=== PATIENT | male | born 1960 | race African-American/Black ===

== ENCOUNTER 2019-01-16 11:30 | Inpatient (IN) | payer OTHER ==
[2019-01-16 17:17] VITALS: BMI 22.1
--- NOTE | 2019-01-16 18:29 | HP ---
CIWA Score Nausea/Vomitin-No Nausea/No Vomiting Muscle Tremors: None Anxiety: 1-Mildly Anxious Agitation: 1-Slight > Activity Paroxysmal Sweats: 1-Minimal Palms Moist Orientation: 1-Uncertain about Date Tacttile Disturbances: 0-None Auditory Disturbances: 0-None Visual Disturbances: 0-None Headache: 0-None Present CIWA-Ar Total Score: 4 - Admission Criteria OASAS Guidelines: Admission for Medically Managed Detox: Requires at least one of the followin. CIWA greater than 12 2. Seizures within the past 24 hours 3. Delirium tremens within the past 24 hours 4. Hallucinations within the past 24 hours 5. Acute intervention needed for co occurring medical disorder 6. Acute intervention needed for co occurring psychiatric disorder 7. Severe withdrawal that cannot be handled at a lower level of care (continued vomiting, continued diarrhea, abnormal vital signs) requiring intravenous medication and/or fluids 8. Admission ROS S - HPI Allergies/Adverse Reactions: Allergies Allergy/AdvReac Type Severity Reaction Status Date / Time No Known Allergies Allergy Verified 01/16/19 17:03 History of Present Illness: pt her requesting detox from etoh use , reports 1 x 6-pk beer and several shots of liquor /day , reports sweating if not drinking , latest use this morning , current symptoms as above , starts drinking in the mornings , + trmeors if not drinking , denies seizures , + blackout x once , + falls while intoxicated denies injuries . pmhx : hiv 25 years ago dx , ID clinic @ [facility] ctr pshx : left arm 2 mo ago CA excision @ [facility] , CT scan 1 week ago , no cxt/rxt , left leg skin graft donor site psych : denies tobacco : 1/2 ppd . Exam Limitations: No Limitations - Ebola screening Have you traveled outside of the country in the last 21 days: No Have you had contact with anyone from an Ebola affected area: No - Review of Systems Constitutional: No Symptoms Reported EENT: reports: Other (glasses) Respiratory: reports: No Symptoms reported Cardiac: reports: No Symptoms Reported GI: reports: No Symptoms Reported : reports: No Symptoms Reported Musculoskeletal: reports: Muscle Pain (left arm) Integumentary: reports: See HPI Neuro: reports: See HPI Endocrine: reports: No Symptoms Reported Psychiatric: reports: Orientated x3 Patient History - Patient Medical History Hx Anemia: No Hx Asthma: No Hx Chronic Obstructive Pulmonary Disease (COPD): No Hx Cancer: No Hx Cardiac Disorders: No Hx Congestive Heart Failure: No Hx Hypertension: Yes Hx Hypercholesterolemia: No Hx Pacemaker: No HX Cerebrovascular Accident: No Hx Seizures: No Hx Dementia: No Hx Diabetes: No Hx Gastrointestinal Disorders: No Hx Liver Disease: No Hx Genitourinary Disorders: No Hx Sexually Transmitted Disorders: No Hx Renal Disease (ESRD): No Hx Thyroid Disease: No Hx Human Immunodeficiency Virus (HIV): Yes Hx Hepatitis C: Yes Hx Depression: Yes Hx Suicide Attempt: No Hx Bipolar Disorder: No Hx Schizophrenia: No - Patient Surgical History Past Surgical History: No Hx Neurologic Surgery: No Hx Cataract Extraction: No Hx Cardiac Surgery: No Hx Lung Surgery: No Hx Breast Surgery: No Hx Breast Biopsy: No Hx Abdominal Surgery: No Hx Appendectomy: No Hx Cholecystectomy: No Hx Genitourinary Surgery: No Hx Orthopedic Surgery: No - PPD History Date: 04/11/16 - Smoking Cessation Smoking history: Current every day smoker Have you smoked in the past 12 months: Yes Aproximately how many cigarettes per day: 20 Cigars Per Day: 0 Hx Chewing Tobacco Use: No Initiated information on smoking cessation: No - Substances abused Alcohol Substance route: Oral Frequency: Daily Amount used: 6 pints Age of first use: 18 Date of last use: 01/16/19 Family Disease History - Family Disease History Family History: Denies Admission Physical Exam BHS - Vital Signs Vital Signs: Vital Signs - 24 hr 01/16/19 17:02 Temperature 97.9 F Pulse Rate 73 Respiratory 20 Rate Blood Pressure 162/86 - Physical General Appearance: Yes: Mild Distress, Anxious HEENTM: Yes: EOMI, Normocephalic, Muffled/Hoarse Voice Respiratory: Yes: Normal Breath Sounds, No Respiratory Distress, No Accessory Muscle Use Neck: Yes: Trachea in good position Cardiology: Yes: Regular Rhythm, Regular Rate, S1, S2 Abdominal: Yes: Non Tender, Soft Musculoskeletal: Yes: Joint Stiffness, Other (left arm superior p osterior area of large surgical excision deformity w/ skin graft, c/d/i) Extremities: Yes: Normal Range of Motion, Non-Tender Neurological: Yes: Alert, Motor Strength 5/5 Integumentary: Yes: Warm - Diagnostic (1) Alcohol dependence with withdrawal, uncomplicated Current Visit: Yes Status: Acute (2) Nicotine dependence Current Visit: Yes Status: Chronic Qualifiers: Nicotine product type: cigarettes Breathalyzer - Breathalyzer Breathalyzer: 0 Urine Drug Screen - Test Device Lot number: [id number] Expiration date: 09/25/20 - Control Is test valid?: Yes - Results Drug screen NEGATIVE: Yes Inpatient Rehab Admission - Rehab Decision to Admit Inpatient rehab admission?: Yes - Initial Determination Are CD services needed?: Yes Free of communicable disease: Yes Not in need of hospitalization: Yes - Rehab Admission Criteria Previous failed treatment: Yes Poor recovery environment: Yes Comorbidities: No Lacks judgement: Yes Patient is meeting Inpatient Rehab admission criteria:: Yes
[2019-01-16] MEDS ORDERED: guaiFENesin 200 MG/10 ML 10 ML UNIT-DOSE CUPS PO PRN (18:50)
[2019-01-16] MEDS ORDERED: MAGNESIUM CITRATE 300 ML BOTTLE PO PRN (18:50)
[2019-01-16] MEDS ORDERED: MENTHOL/PHENOL 1 EACH UD MM PRN (18:50)
[2019-01-16] MEDS ORDERED: MAG HYDROX/AL HYDROX/SIMETH 30 ML UNIT-DOSE CUP PO PRN (18:50)
[2019-01-16] MEDS ORDERED: IBUPROFEN 400 MG TABLET (FP) PO PRN (18:50)
[2019-01-16] MEDS ORDERED: ACETAMINOPHEN 325 MG TABLET (FP) PO PRN (18:50)
[2019-01-16] MEDS ORDERED: LOPERAMIDE HCL 2 MG CAPSULE PO PRN (18:50)
[2019-01-16] MEDS ORDERED: P-EPHED 60MG/TRIPROLIDI 2.5MG TABLET PO PRN (18:50)
[2019-01-16] MEDS ORDERED: MAGNESIUM HYDROX 2400MG/30ML ORAL SUSPENSION 30 ML CUP PO PRN (18:50)
[2019-01-16] MEDS ORDERED: TUBERCULIN PPD 5 TU/0.1ML VIAL ID ONE (20:42)
[2019-01-16 21:18] LABS: EPI CELLS 0.8 /HPF (0-5/HPF); HYALINE CASTS 1 /lpf (0-8); PH,URINE 6.5 (5.0-8.0); URINE APPEARANCE CLEAR; URINE BACTERIA 3.2 /hpf (NEGATIVE); URINE BILIRUBIN NEGATIVE (NEGATIVE); URINE COLOR YELLOW; URINE GLUCOSE (UA) NEGATIVE (NEGATIVE); URINE KETONE 1+ (NEGATIVE); URINE LEUK ESTERASE NEGATIVE (NEGATIVE); URINE NITRITE NEGATIVE (NEGATIVE); URINE PROTEIN 1+ (NEGATIVE); URINE RBC 0 /hpf (0-4); URINE UROBILINOGEN 0.2 mg/dL (0.2-1.0); URINE WBC 2 /hpf (0-5)
[2019-01-16] MEDS: THIAMINE HCL 100 MG TABLET (FP) PO SCH (22:10)
[2019-01-16] MEDS: MELATONIN 5 MG TABLETS PO PRN (22:10)
[2019-01-16] MEDS: ASPIRIN COATED 81 MG TABLET.EC PO SCH (22:21)
[2019-01-17] MEDS: HYDROCHLOROTHIAZIDE 12.5 MG CAPSULE (FP) PO SCH (09:33)
[2019-01-17] MEDS: PRENATAL VITAMINS W/ FOLIC ACID TABLET (FP) PO SCH (09:33)
[2019-01-17] MEDS: amLODIPine BESYLATE 5 MG TABLET (FP) PO SCH (09:33)
[2019-01-17] MEDS: ASPIRIN COATED 81 MG TABLET.EC PO SCH (09:33)
[2019-01-17 10:41] LABS: BLOOD UREA NITROGEN 14.4 mg/dL (7-18); CALCIUM 9.6 mg/dL (8.5-10.1); POTASSIUM 4.4 mmol/L (3.5-5.1)
[2019-01-17 10:42] LABS: HEMATOCRIT 40.8 % (35.4-49); HEMOGLOBIN 14.1 GM/dL (11.7-16.9); MCH 35.5 pg (25.7-33.7); MCHC 34.4 g/dl (32.0-35.9); MEAN CELL VOLUME 103.1 fl (80-96); MEAN PLT VOLUME 7.7 fl (7.5-11.1); PLATELET COUNT 332 K/MM3 (134-434); RBC 3.96 M/mm3 (4.00-5.60); RDW 14.3 % (11.9-15.9); WHITE BLOOD COUNT 2.7 K/mm3 (4.0-10.0)
[2019-01-17] MEDS: CALCIUM (OYSTER SHELL) 500 MG TABLET (FP) PO SCH (12:39)
[2019-01-17] MEDS: MELATONIN 5 MG TABLETS PO PRN (21:01)
[2019-01-17] MEDS: THIAMINE HCL 100 MG TABLET (FP) PO SCH (21:01)
[2019-01-18] MEDS: ASPIRIN COATED 81 MG TABLET.EC PO SCH (09:57)
[2019-01-18] MEDS: HYDROCHLOROTHIAZIDE 12.5 MG CAPSULE (FP) PO SCH (09:57)
[2019-01-18] MEDS: PRENATAL VITAMINS W/ FOLIC ACID TABLET (FP) PO SCH (09:57)
[2019-01-18] MEDS: amLODIPine BESYLATE 5 MG TABLET (FP) PO SCH (09:57)
[2019-01-18] MEDS: CALCIUM (OYSTER SHELL) 500 MG TABLET (FP) PO SCH (09:58)
[2019-01-18] MEDS: THIAMINE HCL 100 MG TABLET (FP) PO SCH (21:01)
[2019-01-18] MEDS: MELATONIN 5 MG TABLETS PO PRN (21:02)
[2019-01-19] MEDS: ASPIRIN COATED 81 MG TABLET.EC PO SCH (09:46)
[2019-01-19] MEDS: PRENATAL VITAMINS W/ FOLIC ACID TABLET (FP) PO SCH (09:46)
[2019-01-19] MEDS: CALCIUM (OYSTER SHELL) 500 MG TABLET (FP) PO SCH (09:46)
[2019-01-19] MEDS: amLODIPine BESYLATE 5 MG TABLET (FP) PO SCH (11:00)
[2019-01-19] MEDS: HYDROCHLOROTHIAZIDE 12.5 MG CAPSULE (FP) PO SCH (11:00)
[2019-01-19] MEDS: THIAMINE HCL 100 MG TABLET (FP) PO SCH (21:01)
[2019-01-19] MEDS: MELATONIN 5 MG TABLETS PO PRN (21:02)
[2019-01-20] MEDS: HYDROCHLOROTHIAZIDE 12.5 MG CAPSULE (FP) PO SCH (09:31)
[2019-01-20] MEDS: PRENATAL VITAMINS W/ FOLIC ACID TABLET (FP) PO SCH (09:31)
[2019-01-20] MEDS: amLODIPine BESYLATE 5 MG TABLET (FP) PO SCH (09:31)
[2019-01-20] MEDS: ASPIRIN COATED 81 MG TABLET.EC PO SCH (09:31)
[2019-01-20] MEDS: CALCIUM (OYSTER SHELL) 500 MG TABLET (FP) PO SCH (10:07)
[2019-01-20] MEDS: MELATONIN 5 MG TABLETS PO PRN (21:03)
[2019-01-20] MEDS: THIAMINE HCL 100 MG TABLET (FP) PO SCH (21:03)
[2019-01-21] MEDS: amLODIPine BESYLATE 5 MG TABLET (FP) PO SCH (09:24)
[2019-01-21] MEDS: PRENATAL VITAMINS W/ FOLIC ACID TABLET (FP) PO SCH (09:24)
[2019-01-21] MEDS: HYDROCHLOROTHIAZIDE 12.5 MG CAPSULE (FP) PO SCH (09:24)
[2019-01-21] MEDS: ASPIRIN COATED 81 MG TABLET.EC PO SCH (09:24)
[2019-01-21] MEDS: CALCIUM (OYSTER SHELL) 500 MG TABLET (FP) PO SCH (09:25)
[2019-01-21] MEDS: MELATONIN 5 MG TABLETS PO PRN (20:59)
[2019-01-21] MEDS: THIAMINE HCL 100 MG TABLET (FP) PO SCH (20:59)
[2019-01-22] MEDS: PRENATAL VITAMINS W/ FOLIC ACID TABLET (FP) PO SCH (09:32)
[2019-01-22] MEDS: amLODIPine BESYLATE 5 MG TABLET (FP) PO SCH (09:32)
[2019-01-22] MEDS: ASPIRIN COATED 81 MG TABLET.EC PO SCH (09:32)
[2019-01-22] MEDS: CALCIUM (OYSTER SHELL) 500 MG TABLET (FP) PO SCH (09:32)
[2019-01-22] MEDS: HYDROCHLOROTHIAZIDE 12.5 MG CAPSULE (FP) PO SCH (09:32)
[2019-01-22] MEDS: MELATONIN 5 MG TABLETS PO PRN (21:02)
[2019-01-22] MEDS: THIAMINE HCL 100 MG TABLET (FP) PO SCH (21:02)
[2019-01-23 06:30] VITALS: BP 111/75; PULSE 78; TEMP 98.1
[2019-01-23] MEDS: ASPIRIN COATED 81 MG TABLET.EC PO SCH (09:37)
[2019-01-23] MEDS: amLODIPine BESYLATE 5 MG TABLET (FP) PO SCH (09:37)
[2019-01-23] MEDS: HYDROCHLOROTHIAZIDE 12.5 MG CAPSULE (FP) PO SCH (09:37)
[2019-01-23] MEDS: CALCIUM (OYSTER SHELL) 500 MG TABLET (FP) PO SCH (09:37)
[2019-01-23] MEDS: PRENATAL VITAMINS W/ FOLIC ACID TABLET (FP) PO SCH (09:37)
--- NOTE | 2019-01-23 09:58 | PN ---
[facility] Progress Note (SOAP) Subjective: PT REQUESTING EARLY DISCHARGE PER [employer], ANDREW CAT. PT MET WITH HIS COUNSELOR, FADUMO BECKER AND HAS BEEN REFERRED TO [facility], [place], [place] FOR CD AFTERCARE. PT REPORTS HE HAS PRIMARY CARE AT [facility]. PT REPORTS HE HAS OWN MEDS AND WILL FOLLOW UP WITH MEDICAL CARE WITH HIS PCP. PT IS ALERT O X 3. DENIES S/H/I. Objective: 01/23/19 09:55 Vital Signs 01/23/19 01/23/19 03:30 06:28 Temperature 98.1 F Pulse Rate 78 Respiratory 18 18 Rate Blood Pressure 111/75 Laboratory Tests 01/16/19 01/17/19 01/17/19 17:14 08:00 08:00 WBC 2.7 L RBC 3.96 L Hgb 14.1 Hct 40.8 MCV 103.1 H MCH 35.5 H MCHC 34.4 RDW 14.3 Plt Count 332 D MPV 7.7 Sodium 140 Potassium 4.4 Chloride 106 Carbon Dioxide 28 Anion Gap 6 L BUN 14.4 Creatinine 1.0 Est GFR (CKD-EPI)AfAm 94.39 Est GFR (CKD-EPI)NonAf 81.44 Random Glucose 136 H Calcium 9.6 Total Bilirubin 1.0 AST 67 H ALT 71 H Alkaline Phosphatase 116 Total Protein 8.0 Albumin 4.0 Urine Color Yellow Urine Appearance Clear Urine pH 6.5 D Ur Specific [place] 1.021 Urine Protein 1+ H Urine Glucose (UA) Negative Urine Ketones 1+ H Urine Blood Negative Urine Nitrite Negative Urine Bilirubin Negative Urine Urobilinogen 0.2 Ur Leukocyte Esterase Negative Urine WBC (Auto) 2 Urine RBC (Auto) 0 Urine Casts (Auto) 1 U Epithel Cells (Auto) 0.8 Urine Bacteria (Auto) 3.2 RPR Titer 01/17/19 08:00 WBC RBC Hgb Hct MCV MCH MCHC RDW Plt Count MPV Sodium Potassium Chloride Carbon Dioxide Anion Gap BUN Creatinine Est GFR (CKD-EPI)AfAm Est GFR (CKD-EPI)NonAf Random Glucose Calcium Total Bilirubin AST ALT Alkaline Phosphatase Total Protein Albumin Urine Color Urine Appearance Urine pH Ur Specific [place] Urine Protein Urine Glucose (UA) Urine Ketones Urine Blood Urine Nitrite Urine Bilirubin Urine Urobilinogen Ur Leukocyte Esterase Urine WBC (Auto) Urine RBC (Auto) Urine Casts (Auto) U Epithel Cells (Auto) Urine Bacteria (Auto) RPR Titer Nonreactive COPY OF LABS GIVEN TO PATIENT FOR HIS PRIMARY CARE FOLLOW UP. Home Medications Medication Instructions Recorded Amlodipine Besylate [Norvasc -] 5 mg PO DAILY 04/09/16 Hydrochlorothiazide [Hctz -] 12.5 mg PO DAILY 04/09/16 Aspirin [Aspirin EC] 81 mg PO DAILY 01/16/19 Calcium Carbonate [Oyster Shell 1 tablet PO DAILY 01/16/19 Calcium] Elviteg/Cob/Emtri/Tenof Alafen 1 tablet PO DAILY 01/16/19 [Genvoya Tablet] Multivit,Calc,Mins/Iron/Folic 1 tablet PO DAILY 01/16/19 [Therapeutic-M Tablet] Assessment: 01/23/19 09:56 NAD MEDICALLY STABLE Plan: FOLLOW UP WITH CD AFTERCARE RECOMMENDED. FOLLOW UP WITH PRIMARY CARE WITHIN 1-2 WEEKS AFTER DISCHARGE.
== END 2019-01-23 10:05 | disposition home or self-care (01) | DRG 772 ==
LOC: YASAS 11:30 → Y6N 19:35 → Y5N 19:48
PROVIDERS: ADMIT Surgery; ATTEND Neuromusculoskeletal Medicine & OMM
PROC: HZ42ZZZ Group Counseling for Substance Abuse Treatment, Cognitive-Behavioral (ICD-10-PCS; principal; 2019-01-16)
DX: F10.20 Alcohol dependence, uncomplicated (principal); F12.20 Cannabis dependence, uncomplicated; F17.210 Nicotine dependence, cigarettes, uncomplicated; F32.9 Major depressive disorder, single episode, unspecified; Z21 Asymptomatic human immunodeficiency virus [HIV] infection status; I10 Essential (primary) hypertension; M12.9 Arthropathy, unspecified; B18.2 Chronic viral hepatitis C
CPT/HCPCS: 36415; 80053; 81003; 85027; 86593